=== PATIENT | female | born 1985 | race African-American/Black ===

== ENCOUNTER 2017-02-09 18:26 | Emergency (ER) | payer OTHER ==
[~2017-02-09] VITALS: Ht 175.3 cm; Wt 83.9 kg
[2017-02-09 18:39] VITALS: BP 132/82
[2017-02-09 19:28] LABS: APPEARANCE,URINE CLOUDY; KETONES,URINE NEGATIVE (NEGATIVE); LEUKOCYTE ESTERASE ,URINE 3+ (NEGATIVE); NITRITE,URINE NEGATIVE (NEGATIVE); PH,URINE 5 (4.5-8.0); PROTEIN,URINE NEGATIVE (NEGATIVE); UROBILINOGEN,URINE NORMAL MG/DL (0.0-1.0)
--- NOTE | 2017-02-09 19:47 | Emergency Room Report ---
History of Present Illness General Chief Complaint: General Complaint Source: Patient Present Illness HPI 31-year-old female presents to the emergency department complaining of itchy insect bites on the bilateral upper extremities and thighs x3 days. Patient states she's been using [id number]-jorhcte insect bite cream with no relief. Patient reports moderate swelling, erythema and continued progression of the redness and tenderness. She also reports intermittent lower abdominal discomfort that she describes as swollen and which is exacerbated after eating in the lower abdominal area. Patient denies sharp pain, cramping or diarrhea/ constipation. Patient states she feels "bloated". Eyes hematuria, dysuria, frequency, fevers, chills or low back pain. Denies nausea or vomiting. Denies lesions/rashes elsewhere on the body. Denies new medications or body washes or creams. Denies swelling of the lips, tongue , throat or airway. Denies wheezing , or shortness of breath. Denies recent travel, recent illness or ill contacts. denies blisters, oral lesions, or sloughing of the skin. Allergies: Coded Allergies: No Known Allergies (Unverified , 02/09/17) Patient History Past Medical History: see triage record Past Surgical History: none Pertinent Family History: none Last Menstrual Period: 01/21/17 Now: No Immunizations: UTD Reviewed Nursing Documentation: PMH: Agreed, PSxH: Agreed Nursing Documentation-PMH Past Medical History: No Stated History Review of Systems All Other Systems: negative except mentioned in HPI Physical Exam Vital Signs Date Time Temp Pulse Resp B/P (MAP) Pulse Ox O2 Delivery O2 Flow Rate FiO2 02/09/17 18:39 98.1 61 18 132/82 100 Room Air Sp02 EP Interpretation: reviewed, normal General Appearance: no apparent distress, alert, GCS 15, non-toxic Head: normocephalic, atraumatic Eyes: bilateral eye normal inspection, bilateral eye PERRL ENT: hearing grossly normal, normal pharynx, no angioedema, normal voice, other - no swelling of the lips or tongue, no oral lesions. Neck: full range of motion, supple/symm/no masses Respiratory: chest non-tender, lungs clear, normal breath sounds, no wheezing, speaking full sentences Cardiovascular #1: regular rate, rhythm, normal capillary refill Gastrointestinal: normal bowel sounds, non tender, soft, no guarding, no rebound Rectal: deferred Genitourinary: normal inspection, no CVA tenderness Musculoskeletal: back normal, gait/station normal, normal range of motion, non- tender Neurologic: alert, oriented x3, responsive, motor strength/tone normal, sensory intact, speech normal Psychiatric: judgement/insight normal, memory normal, mood/affect normal Skin: normal color, warm/dry, well hydrated, rash - multiple indurated discrete 1cm erythematous insect bites on the bilateral UE's and thighs , some on the neck. the left forearm has one lesion with moderate surrounding erythema and increased temperature to palpation, no crusting. no blisters , no vesicles. Lymphatic: no adenopathy Medical Decision Making PA Attestation Dr. almonte is my supervising Physician whom patient management has been discussed with. Diagnostic Impression: Primary Impression: Insect bite Qualified Codes: W57.XXXA - Bitten or stung by nonvenomous insect and other nonvenomous arthropods, initial encounter Additional Impressions: Cellulitis Qualified Codes: L03.90 - Cellulitis, unspecified Urinary tract infection Qualified Codes: N30.01 - Acute cystitis with hematuria ER Course 31-year-old female presents to the emergency department complaining of itchy insect bites on the bilateral upper extremities and thighs x3 days. Patient states she's been using [id number]-[id number] insect bite cream with no relief. Patient reports moderate swelling, erythema and continued progression of the redness and tenderness. She also reports intermittent lower abdominal discomfort that she describes as swollen and which is exacerbated after eating in the lower abdominal area. Patient denies sharp pain, cramping or diarrhea/ constipation. Patient states she feels "bloated". Eyes hematuria, dysuria, frequency, fevers, chills or low back pain. Denies nausea or vomiting. Denies lesions/rashes elsewhere on the body. Denies new medications or body washes or creams. Denies swelling of the lips, tongue , throat or airway. Denies wheezing , or shortness of breath. Denies recent travel, recent illness or ill contacts. denies blisters, oral lesions, or sloughing of the skin. Ddx considered but are not limited to cellulitis, scabies, shingles, varicella, dermatitis, urticaria, eczema, tinea, viral exanthem, SJS Vital signs: are WNL, pt. is afebrile H&PE are most consistent with insect bites suspicious for secondary cellulitic infection. ORDERS: -UA: positive for indicators of infection. -Urine Hcg: Negative ED INTERVENTIONS: None required at this time. DISCHARGE: At this time pt. is stable for d/c to home. Will provide printed patient care instructions, and any necessary prescriptions. Care plan and follow up instructions have been discussed with the patient prior to discharge. Labs Test 02/09/17 18:49 Urine Color Pale yellow Urine Appearance Cloudy Urine pH 5 (4.5-8.0) Urine Specific [place] 1.025 (1.005-1.035) Urine Protein Negative (NEGATIVE) Urine Glucose (UA) Negative (NEGATIVE) Urine Ketones Negative (NEGATIVE) Urine Occult Blood Negative (NEGATIVE) Urine Nitrite Negative (NEGATIVE) Urine Bilirubin Negative (NEGATIVE) Urine Urobilinogen Normal MG/DL (0.0-1.0) Urine Leukocyte Esterase 3+ (NEGATIVE) Urine RBC 2-4 /HPF (0 - 2) Urine WBC 5-10 /HPF (0 - 2) Urine Squamous Epithelial Cells Moderate /LPF (NONE/OCC) Urine Bacteria Moderate /HPF (NONE) Urine Mucus Few /LPF (NONE/OCC) Urine HCG, Qualitative Negative Last Vital Signs Date Time Temp Pulse Resp B/P (MAP) Pulse Ox O2 Delivery O2 Flow Rate FiO2 02/09/17 18:39 98.1 61 18 132/82 100 Room Air Disposition: HOME, SELF-CARE Condition: Stable Scripts Hydrocortisone (Hydrocortisone Cream 2.5%) Y Cream.appl 1 APPLIC TP BID, #20.3 GM Prov: Demetria Pro 02/09/17 Bsevh-L-Xlohncwkfqwne (ANTI-GAS) 600 Unit Capsule 600 UNIT PO BID, #20 CAP Prov: Demetria Pro 02/09/17 Diphenhydramine Hcl (BENADRYL ALLERGY) 25 Mg Tablet 25 MG PO Q6HR, #30 TAB Prov: Demetria Pro 02/09/17 Cephalexin* (KEFLEX*) 500 Mg Capsule 500 MG ORAL EVERY 12 HOURS for 7 Days, #14 CAP 0 Refills Prov: Demetria Pro 02/09/17 Patient Instructions: Cellulitis, Pouv-qs-Ujry, Insect Bite, Urinary Tract Infection, [id number] Additional Instructions: Take medications as directed. Follow up with a Primary Care Provider in 3-5 days, even if your symptoms have resolved. --Please review list of primary care clinics, if you do not already have a primary care provider Return sooner to ED if new symptoms occur, or current symptoms become worse. - Please note that this Emergency Department Report was dictated using [employer] roll operator technology software, occasionally this can lead to erroneous entry secondary to interpretation by the dictation equipment. Demetria Pro Feb 09, 2017 19:47
[2017-02-09 19:48] LABS: BACTERIA,URINE MODERATE /HPF; MUCUS,URINE FEW /LPF (NONE/OCC); SQUAMOUS EPITHELIAL CELL,UR MODERATE /LPF (NONE/OCC)
[2017-02-09] MEDS ORDERED: BENADRYL ALLERG25 M1 PO (19:50)
[2017-02-09] MEDS ORDERED: ANTI-GAS600 UNIT PO (19:50)
[2017-02-09] MEDS ORDERED: HYDROCORTISONE30 G2 TP (19:50)
[2017-02-09] MEDS ORDERED: CEPHALEXIN500 MG ORAL (19:50)
[2017-02-09 20:15] VITALS: BP 140/84
== END 2017-02-09 20:15 | disposition home or self-care (01) ==
LOC: EMR 19:00
DX: S40.862A Insect bite (nonvenomous) of left upper arm, initial encounter (principal); S40.861A Insect bite (nonvenomous) of right upper arm, initial encounter; S70.362A Insect bite (nonvenomous), left thigh, initial encounter; S70.361A Insect bite (nonvenomous), right thigh, initial encounter; S50.862A Insect bite (nonvenomous) of left forearm, initial encounter; S10.96XA Insect bite of unspecified part of neck, initial encounter; W57.XXXA Bitten or stung by nonvenomous insect and other nonvenomous arthropods, initial encounter; Y92.89 Other specified places as the place of occurrence of the external cause; L03.90 Cellulitis, unspecified; N39.0 Urinary tract infection, site not specified
CPT/HCPCS: 81003; 81025; 87086; 99284